=== PATIENT | female | born 1955 | race Asian ===

== ENCOUNTER 2024-10-02 01:57 | Emergency (ER) | payer OTHER ==
[~2024-10-02] VITALS: Ht 154.9 cm; Wt 60.0 kg
[2024-10-02 02:00] VITALS: BP 177/78
[2024-10-02] MEDS: IPRATROPIUM BROMIDE (0.02%) 0.5MG/2.5ML NEB HHN STA (02:53)
[2024-10-02] MEDS: ALBUTEROL (0.083%) 2.5MG/3ML NEB HHN SCH (02:53)
[2024-10-02 02:59] VITALS: PULSE 85; RESP 22; O2SAT 95
[2024-10-02] MEDS: MAGNESIUM 2 G PREMIX 50 ML IV ONE (03:41)
[2024-10-02] MEDS: METHYLPREDNISOLONE SOD SUCC 125MG/2ML (ACT-O-VIAL) IV STA (03:41)
[2024-10-02] MEDS ORDERED: P20 MT (03:42)
[2024-10-02 03:59] VITALS: PULSE 79; RESP 20; O2SAT 97
[2024-10-03] MEDS ORDERED: ASPI-867 MT (05:06)
[2024-10-04] MEDS ORDERED: GUAI200T5 MT (13:12)
[2024-10-04] MEDS ORDERED: PRED10TA23 PO (13:12)
== END 2024-10-02 04:00 | disposition home or self-care (01) ==
LOC: ER 01:57
DX: R06.02 Shortness of breath (principal); J44.9 Chronic obstructive pulmonary disease, unspecified
CPT/HCPCS: 99284; 71045; 94640; J3475; J2919